=== PATIENT | female | born 1985 ===

== ENCOUNTER 2017-03-26 14:55 | Emergency (ER) | payer SELFPAY ==
[2017-03-26] MEDS ORDERED: Lactated Ringer's 1,000 ML IV ONE (16:09)
[2017-03-26] MEDS ORDERED: Dextrose 5%/Lactated Ringer's 1,000 ML IV SCH (17:00)
--- NOTE | 2017-03-26 17:56 | OBHP ---
Datetime: 03/26/2017 15:57 IP Adm Impression: , intrauterine IP Chief Complaint Other: GDMA sent for NST Admit Comment, IP Provider: @ 32.6 wks GA with GDMA reports had BPP done today and MOB ad snet for NST due ot GDMA. Pt reports diet controlled with diabetes. pt dneis any lof, vb, ctx, +FM. UPon intial electric monitoring, baby was noted to have sponatnaou 2-3 min decelertaon with spontane ous recomver to baseline. 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, ovarian cyst, STI, abnormal pap PMH: deies PSH: Appendectomy 2004 FH:X non contrubotyr MEDS :iron, pnv SHX: negateive etoh/tobacc/drugs BPP: 03/08/2017 prelim TEX 12.4 cm bpp 03/03 , normal dopplers A/p @ 32.5 wks GA with GDMA for prolonged monitoring -prolonged montirong -blood glucose check -cont current maangmet pt with prolonged montiriong, no complaints nst reactive has follow up appoinmetn next week advsied return thursday for repeat NST Pelvic Type - PN: Not Done Extremities - PN: Normal Abdomen - PN: Normal Back - PN: Normal Breast - PN: Not Done Lungs - PN: Normal Heart - PN: Normal Thyroid - PN: Not Done Neurologic - PN: Normal HEENT - PN: Normal General - PN: Normal Presentation-Admit: Vertex FHR - Baseline A Provider: 130 Gestation - Est Wks by US: 32.6 IP Hx Assessment: The History has been Reviewed and is Current EGA AdmitDate IP: 32.6 Vital Signs Provider: Reviewed; Within Normal Limits Vital Signs Provider Details: FS 82 IP Chief Complaint: Other NICHD Variability Prov Fetus A: Moderate 6-25bpm FHR Category Provider Fetus A: Category I Dilatation, Provider: 0 Genitourinary Exam: Normal DTRs - PN: Normal
--- NOTE | 2017-03-26 17:58 | OBDCSUM ---
Datetime: 03/26/2017 17:56 Follow up at, Provider: Clinic Disch Instr Activity: Normal activity Disch Instr Diet: Restricted, specify Discharge Diet restrict Prov: diabetic diet Discharge Instructions, Provider: Routine instructions given Discharge Time: 03/26/2017 17:56 Follow up in weeks, Provider: 1 week Discharge Comment, Provider: Needs repeat BPP within 1 week rturn to hospital Thursday for repet NST, sooner if any concerns , bleedig, pain, ctx, decreased or no movments. imporatnce of tight blood glucose control discussed with patient Discharge Diagnosis Prov Other: prolonged monitoring
[2017-03-26 22:27] VITALS: BP 122/73; PULSE 78; RESP 18; TEMP 97.2; O2SAT 99
== END 2017-03-26 18:10 | disposition home or self-care (01) ==
LOC: EDBD → C.EROB 14:55 → EDBD 14:55 → C.EROB 18:10
DX: Z36 Encounter for antenatal screening of mother (principal)
CPT/HCPCS: 82948; 99283; J7120

== ENCOUNTER 2017-03-30 11:00 | Emergency (ER) | payer MEDICAID, SELFPAY ==
[2017-03-30 12:37] VITALS: BMI 30.7
[2017-03-30] MEDS ORDERED: Lactated Ringer's 1,000 ML IV ONE (12:37)
[2017-03-30 12:54] LABS: URINE BACTERIA RARE (<OCC); URINE BILIRUBIN NEGATIVE (NEGATIVE); URINE BLOOD 1+ (NEGATIVE); URINE COLOR Colorless (YELLOW); URINE GLUCOSE (UA) NORMAL (Normal); URINE KETONE NEGATIVE (NEGATIVE); URINE LEUKOCYTE ESTERASE NEG Leu/uL (Negative); URINE PROTEIN NEGATIVE (NEGATIVE); URINE UROBILINOGEN NORMAL mg/dL (0.2-1.0); WBC URINE 1 /hpf (0-5)
[2017-03-30 13:01] LABS: RBC URINE 6 /hpf (0-3)
== END 2017-03-30 13:21 | disposition home or self-care (01) ==
LOC: EDBD 11:00 → C.EROB 11:00
DX: Z36 Encounter for antenatal screening of mother (principal)
CPT/HCPCS: 81001; 99283; J7120

== ENCOUNTER 2017-04-06 10:18 | Inpatient (IN) | payer MEDICAID, SELFPAY ==
--- NOTE | 2017-04-06 10:27 | OBHP ---
Datetime: 03/30/2017 11:30 Admit Comment, IP Provider: Patient is a 32 year old female with past medical history of Ges tational Diabetes who presents to L_D floor for routine NST. Patient EGA is 33 week and 3 day with ED D 05/15/2017. Patient has no complaints today, reports feeling movement, denies vaginal bleedin g, sensation of uterine contractions or rupture of membranes. 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 Per chart jani zazueta patient is noted to be Hepatitis negative, HIV negative, and blood group B negative. Patient re ports fasting bg this AM of 91 and 2 hours post breakfast of 100. PMH: Gestational Diabetes PSH: Appendectomy in 2004 ALL: NKDA Meds: Vitamin Case discussed with attending Dr. Kern Addendum: 1245 hours P.E.: as above. Patient in bed in LDR#1 in NAD. 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 2) Rh negative - received Rhogam 02/26/17 EFM noted for contractions as above. Cervical exam -as above Patient counseled for IVFs; will obtain urinalysis. Patient expressed an understanding and agrees . 1305 hours - U/A: leuk esterase(-). pH 8.0; Blood 1+; RBC 6(high) Assessment: 31 y.o. P0, 33w 3d, A1GDM - well controlled, NST reactive; Category 1 tracing. S/P IVF s - no more contractions. Patient encouraged to follow up with CXR. Patient clinically stable. Plan: 1) Discharge home 2) Reviewed S/S PTL 3) Keep ultrasound and sharepoint analyst appointment 04/02 4) Return for weekly NST, Mon 04/06 5) Keep appointment 04/09 6) Continue F.S. log Pelvic Type - PN: Not Done Extremities - PN: Normal Abdomen - PN: Normal Back - PN: Normal Breast - PN: Not Done Lungs - PN: Normal Heart - PN: Normal Thyroid - PN: Normal Neurologic - PN: Normal HEENT - PN: Normal General - PN: Normal FHR - Baseline A Provider: 140 Contraction Comments Provider: 10 minutes Comments, ACOG Physical Exam: Abdomen: Gravid. Soft. Non tender in all quadrants All other systems reviewed - see HPI Gestation - Est Wks by US: 33 wk 3 day Vital Signs Provider: Reviewed NICHD Variability Prov Fetus A: Moderate 6-25bpm FHR Category Provider Fetus A: Category I NICHD Decel Fetus A IP Provider: None Dilatation, Provider: 0 Effacement, Provider: 30 Station, Provider: -3 Genitourinary Exam: Not Done DTRs - PN: Normal Datetime: 03/26/2017 15:57 EGA AdmitDate IP: 32.6
[2017-04-06] MEDS ORDERED: Magnesium Sulfate 4 gm/100 ml 4 GM/100 ML BAG IVPB ONE (11:54)
[2017-04-06] MEDS ORDERED: Betamethasone Soluspan 30 mg/5mL Inj Susp IM SCH (12:00)
[2017-04-06] MEDS ORDERED: Magnesium Sulfate 20 gm 20,000 MG/500 ML BAG IV SCH (12:00)
[2017-04-06] MEDS ORDERED: Lactated Ringer's 1,000 ML IV SCH (12:00)
[2017-04-06 12:28] LABS: BASO % 0.4 % (0.0-2.0); EOS # 0.1 K/uL (0.0-0.7); EOS % 0.9 % (0.0-4.0); HEMATOCRIT 36.8 % (34.0-47.0); LYMPH # 2.1 K/uL (1.0-4.3); LYMPH % 26.8 % (20.0-40.0); MEAN CELL VOLUME 88.5 fL (81.0-99.0); MEAN PLATELET VOLUME 8.5 fL (7.2-11.7); MONO # 0.4 K/uL (0.0-0.8); MONO % 5.5 % (0.0-10.0); RED CELL DISTRIBUTION WIDTH 14.1 % (11.5-14.5); WHITE BLOOD COUNT 7.8 K/uL (4.8-10.8)
[2017-04-06 12:33] LABS: RBC URINE 1 /hpf (0-3); URINE BACTERIA FEW (<OCC); URINE BILIRUBIN NEGATIVE (NEGATIVE); URINE BLOOD NEGATIVE (NEGATIVE); URINE COLOR Straw (YELLOW); URINE GLUCOSE (UA) NORMAL (Normal); URINE KETONE NEGATIVE (NEGATIVE); URINE LEUKOCYTE ESTERASE 2+ Leu/uL (Negative); URINE PROTEIN NEGATIVE (NEGATIVE); URINE UROBILINOGEN NORMAL mg/dL (0.2-1.0); WBC URINE 19 /hpf (0-5)
[2017-04-06 12:40] LABS: CHLORIDE 109 mmol/L (98-107); SODIUM 138 mmol/L (132-148)
[2017-04-06 12:41] LABS: POTASSIUM 4.2 mmol/L (3.6-5.2)
[2017-04-06 12:42] LABS: GFR AFRICAN-AMERICAN > 60
[2017-04-06 12:43] LABS: ALB/GLOB RATIO 1.2 (1.0-2.1); ALKALINE PHOSPHATASE 102 U/L (38-126); ALT/SGPT 36 U/L (9-52); AST/SGOT 28 U/L (14-36); BILIRUBIN,TOTAL 0.5 mg/dL (0.2-1.3); BLOOD UREA NITROGEN 5 mg/dL (7-17); CALCIUM 9.5 mg/dl (8.6-10.4); CARBON DIOXIDE 18 mmol/L (22-30); GLUCOSE,RANDOM 79 mg/dL (65-105); TOTAL PROTEIN 7.1 g/dL (6.3-8.3)
[2017-04-06 12:44] LABS: MAGNESIUM 2.4 mg/dL (1.6-2.3)
[2017-04-06] MEDS ORDERED: Ampicillin 2 GM in Sodium Chloride 0.9% 100 ML IVPB ONE (14:32)
--- NOTE | 2017-04-06 14:39 | OBADHP ---
Datetime: 04/06/2017 11:20 IP Adm Impression Other: Uterine contractions. 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 LMP 08/01/16, revised RALPH 05/15/17, EGA 34w 3d here for weekly NST for A1GDM. (+) AFM , denies LOF, VB, contractions. Fasting F.S. this morning = 98(ate starchy meal last night); 2 hr pos t prandial, on L_D = 91. Review of F.S. log: fasting 04/05/17= 100 mg/dL ( patient coffe with sugar at approx 2100 hours). All other fasating <= 90 mg/dL. Most 2 hour post prandial < 120; 2 at 122 and 1 21 last week. care [facility]: 1) A1GDM - as above 2) Rh negative - S/P Rhogam at 28+ weeks. 3) PPD(+) - not done CXR. 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 Denies STIs PMH: anemia PSH: 2004, open appendectomy NKDA Meds: started PNV 3 days ago. Soc Hx: denies tobacco, illicit drug or EtOH use. x 2 years. Unemployed. Fam Hx: Mother alive 60 y.o. - HTN. Father age 41 - presumed NM. No known fam h/o cance r P.E.: as above. Assessment: 31. y.o. P0, 34w 3d, A1 GDM; cervical exam as above. Category 1 tracing. Case discusse d with Dr. Chow: start magnesium sulphate for tocolysis and observe. This was discussed wiht moses denton. The benefit of steroid administration, including spurious elevation of blood sugar, was also dis cussed, including the possible need for oral hypoglycemic agent, even insulin. Patient expressed an u nderstanding; decision made to administser celestone. Patient is clinically stable. Plan: 1) Admit 2) NPO 3) Magnesium sulphate: load 4 gm x 1; maintenance 2 grams/hour 4) Celestone 12 mg IM x 1 dose 5) Admission labs 6) continuous EFM 7) F.S. Q 2 hours 8) U/A Pelvic Type - PN: Adequate Extremities - PN: Normal Abdomen - PN: Normal Back - PN: Not Done Breast - PN: Not Done Lungs - PN: Normal Heart - PN: Normal Thyroid - PN: Not Done Neurologic - PN: Normal HEENT - PN: Normal General - PN: Normal Presentation-Admit: Vertex FHR - Baseline A Provider: 135 Contraction Comments Provider: 6-9 minutes Comments, ACOG Physical Exam: Abdomen: Gravid. Soft. Non tender. Healed RLQ scar. All other systems reviewed and are negative Gestation - Est Wks by US: 34w 3d IP Hx Assessment: The History has been Reviewed and is Current Vital Signs Provider: Reviewed; Within Normal Limits IP Chief Complaint: Uterine contractions NICHD Variability Prov Fetus A: Moderate 6-25bpm NICHD Accel Fetus A IP Provider: 15X15 FHR Category Provider Fetus A: Category I NICHD Decel Fetus A IP Provider: None Dilatation, Provider: 2 Effacement, Provider: 40 Station, Provider: -1 Genitourinary Exam: Normal DTRs - PN: Not Done EGA AdmitDate IP: 34.3 IP Adm Impression: , intrauterine IP Admit Plan: Admit to unit Datetime: 03/26/2017 15:57 IP Chief Complaint Other: GDMA sent for NST Vital Signs Provider Details: FS 82
--- NOTE | 2017-04-06 14:53 | OBPN ---
Datetime: 04/06/2017 14:40 IP Progress Impression Other: Threatened labor; A1GDM IP Progress Impression: labor IP Progress Plan: Transfer Membranes, Provider: Intact Contraction Comments Provider: 5-7 FHR - Baseline A Provider: 140 Gestation - Est Wks by US: 34w 3d Presentation-Admit: Vertex IP Progress Note Comment: Patient continues to contract despite magnesium sulphate maintenance at 3 grams/hour Cervical exam- as aobve. Cerivx - anterior; medium to soft consistency Assessment: In light of cervical change, and concern of delivery, it was discussed with savage santoyo and , transfer to Level II institution: [facility]. Case presente d to Dr. Mathias, Attending on Duty at [place], who accepts the transfer. 31 y.o. P0, 32w 4d, A1 GD M - well controlled - threatened labor - S/P celestone IM x 1 dose; on magnesium sulphate. U/ A suggests early UTI (leuk esterase 3+) - will give antibiotics. Category 1 tracing. Clinically stabl e. Plan: 1) ampicillin 2 grams IVPB x 1 2) Transfer to [facility] Vital Signs Provider: Reviewed; Within Normal Limits NICHD Accel Fetus A IP Provider: 15X15 FHR Category Provider Fetus A: Category I NICHD Variability Prov Fetus A: Moderate 6-25bpm Dilatation, Provider: 3 Effacement, Provider: 50 Station, Provider: -2 to -1 NICHD Decel Fetus A IP Provider: None Datetime: 03/26/2017 15:57 Vital Signs Provider Details: FS 82
[2017-04-06 19:28] VITALS: BP 129/79; PULSE 104; O2SAT 99
== END 2017-04-06 14:58 | disposition short-term general hospital (02) | DRG 778 ==
LOC: C.EROB 10:18 → C.4D 11:54
PROVIDERS: ADMIT Obstetrics & Gynecology; ATTEND Obstetrics & Gynecology
DX: O60.03 Preterm labor without delivery, third trimester (principal); O24.410 Gestational diabetes mellitus in pregnancy, diet controlled; O99.013 Anemia complicating pregnancy, third trimester; Z3A.34 34 weeks gestation of pregnancy

== ENCOUNTER 2017-04-13 10:38 | Emergency (ER) | payer MEDICAID ==
[2017-04-06 15:45] VITALS: BMI 30.6
[2017-04-13 15:54] VITALS: BP 128/83; PULSE 80; RESP 18; TEMP 97.8; O2SAT 100
--- NOTE | 2017-04-13 16:26 | OBHP ---
Datetime: 04/13/2017 11:35 Admit Comment, IP Provider: 31yo at 35 weeks 2 days with LMP 08/01/16 and an RALPH of 05/15/2017 as per ultrasound at 7 weeks 5days, who presents for a NST due A1 GDM. Patient was recently at [facility] on the 04/07/17 with SVE of 3/70/-2. Patient was then given 2 doses of celestone and di scharged with ampicillin 500mg TID x7 due to presumed UTI. Currently, patient denies vaginal bleeding , leakage of fluids, abnormal vaginal discharge. Patient endorses movement. 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 Mother: age 59, HTN and asthma Medications: Calcium, Iron and currently completing ampicillin prescription Allergies: NKDA Social Hx: Unemployed, lives with . Denies Tobacco, ETOH and illicit drug use Vital Signs: BP: 128/83 HR:80 P.E: See above A/P: 31yo at 35weeks 2days, who presents for NST: 1. Stable, Afebrile 2. NST reactive, Category I 3. Pre-term labor precautions given 4. Follow up with clinic as regularly scheduled 5. Plans d/w with attending Kaden Lugo DO, PGY-1 Attending Attestation: Patient seen and evaluated with Resident by me. F.S. log reviewed: 2 fasting levels >90 in 1 week, and 2, 2-hour post prandial values >120. F.S. this morning, 82 mg/dL. NST reactive/ Category 1 tra cing. Patine is clinically stable. Plan: as above 1) Continue F.S. log 2) Continue weeksly NST Comments, ACOG Physical Exam: Gen: NAD, AAOXD Cardio: RRR, Normal S1, S2 Pulm: CTA bilaterally Abdomen: Soft, gravid Ext: No edema, no cyanosis and clubbing EFM: FHR (132), + accelaration, - decelaration, category I IP Hx Assessment: The History has been Reviewed and is Current Datetime: 04/06/2017 14:40 Presentation-Admit: Vertex FHR - Baseline A Provider: 140 Membranes, Provider: Intact Contraction Comments Provider: 5-7 Gestation - Est Wks by US: 34w 3d Vital Signs Provider: Reviewed; Within Normal Limits NICHD Variability Prov Fetus A: Moderate 6-25bpm NICHD Accel Fetus A IP Provider: 15X15 FHR Category Provider Fetus A: Category I NICHD Decel Fetus A IP Provider: None Dilatation, Provider: 3 Effacement, Provider: 50 Station, Provider: -2 to -1 Datetime: 04/06/2017 11:20 EGA AdmitDate IP: 34.3
== END 2017-04-13 11:36 | disposition home or self-care (01) ==
LOC: C.EROB 10:38
DX: Z36 Encounter for antenatal screening of mother (principal)